=== PATIENT | male | born 1985 | race Caucasian/White ===

== ENCOUNTER 2021-04-03 11:19 | Emergency (ER) | payer SELFPAY ==
[~2021-04-03] VITALS: Ht 172.7 cm; Wt 127.0 kg
[2021-04-03 11:37] VITALS: BP 130/77
[2021-04-03 12:04] LABS: BASOPHILS % (AUTO) 0.5 % (0.0-5.0); EOSINOPHILS % (AUTO) 0.4 % (0.0-8.0); HEMATOCRIT 43.6 % (42-54); LYMPHOCYTES % (AUTO) 13.9 % (21.0-51.0); MEAN CORPUSCULAR HGB CONC 35.3 g/dL (32.0-36.0); MEAN CORPUSCULAR VOLUME 90.5 fL (79-99); MONOCYTES % (AUTO) 5.6 % (3.0-13.0); NEUTROPHILS % (AUTO) 79.1 % (40.0-77.0); PLATELET COUNT (AUTO) 239 K/uL (130-400); RED BLOOD CELL COUNT(AUTO) 4.82 MIL/uL (4.50-6.20); RED CELL DISTRIBUTION WIDTH 12.6 % (11.0-15.5)
[2021-04-03 12:13] LABS: POTASSIUM 3.7 mmol/L (3.5-5.1)
[2021-04-03 12:17] LABS: ALBUMIN 3.8 g/dL (3.5-5.0); BILIRUBIN,TOTAL 0.4 mg/dL (0.2-1.0); TOTAL PROTEIN, SERUM 7.7 g/dL (6.0-8.3)
[2021-04-03 12:34] LABS: BILIRUBIN,URINE Negative (NEGATIVE); COLOR,URINE Yellow (YELLOW); GLUCOSE, URINE (UA) Negative (NEGATIVE); KETONES,URINE Negative (NEGATIVE); LEUKOCYTE ESTERASE ,URINE Negative (NEGATIVE); NITRATE,URINE Negative (NEGATIVE); OCCULT BLOOD,URINE Trace (NEGATIVE); PH,URINE 5.5 (5.0-8.0); PROTEIN,URINE Negative (NEGATIVE); UROBILINOGEN,URINE 0.2 mg/dL (0.2-1.0)
[2021-04-03 12:36] LABS: APPEARANCE,URINE HAZY (CLEAR)
[2021-04-03 12:53] LABS: BACTERIA,URINE Rare /HPF (None Seen); MUCUS,URINE Many LPF (None Seen); RBC,URINE 0-1 /HPF (0-1); SPERM,URINE Few /HPF (None Seen); SQUAMOUS EPITHELIAL CELL,UR 0-2 /HPF (0-2); WBC,URINE None Seen /HPF (0-1)
[2021-04-03] MEDS ORDERED: IOHEXOL 350 MG/ML 100ML INFUS..BTL IV ONE (13:25)
[2021-04-03 14:17] VITALS: BP 127/86
[2021-04-03] MEDS: 0.9%NACL 1000ML 1,000 ML IV ONE (14:48)
[2021-04-03] MEDS: LIDOCAINE HCL 2% VISCOUS 15 ML UDCUP PO ONE (14:48)
[2021-04-03] MEDS: KETOROLAC 30MG VIAL (30MG/ML) IVP ONE (14:48)
[2021-04-03] MEDS: DICYCLOMINE 20MG (10MG/ML) AMP IM ONE (14:48)
[2021-04-03] MEDS: ONDANSETRON 4MG INJ IVP ONE (14:49)
[2021-04-03] MEDS ORDERED: ONDA4TAB10 PO (16:17)
[2021-04-03] MEDS ORDERED: DICY20TA2 PO (16:17)
[2021-04-03 16:18] VITALS: BP 126/82
== END 2021-04-03 16:42 | disposition home or self-care (01) ==
LOC: EDH 11:19
DX: A08.4 Viral intestinal infection, unspecified (principal); R10.12 Left upper quadrant pain; R11.2 Nausea with vomiting, unspecified; Z20.822 Contact with and (suspected) exposure to COVID-19
CPT/HCPCS: 36415; 74177; 80053; 81001; 82150; 83690 ×2; 85025; 87635; 87804 ×2; 96361; 96372; 96374; 96375; 99285; C9803; J0500; J1885; J2405; J7030; Q9967

== ENCOUNTER → 2022-03-12 | Outpatient (CLI) | payer OTHER ==
[~2022-03-12] MED LIST: DICY20TA2 PO; ONDA4TAB10 PO
== END | disposition home or self-care (01) ==
LOC: RAH 09:18
PROVIDERS: ATTEND Family Medicine
DX: M47.26 Other spondylosis with radiculopathy, lumbar region (principal); M48.061 Spinal stenosis, lumbar region without neurogenic claudication; M51.17 Intervertebral disc disorders with radiculopathy, lumbosacral region
CPT/HCPCS: 72131